=== PATIENT | male | born 1990 | race Two or more races ===

== ENCOUNTER 2018-11-18 10:07 | Emergency (ER) | payer MEDICAID ==
[~2018-11-18] VITALS: Ht 175.3 cm; Wt 63.5 kg
[2018-11-18] MEDS ORDERED: IV NORMAL SALINE 1000 ML BAG IV ONE (10:45)
[2018-11-18] MEDS ORDERED: METOCLOPRAMIDE HCL 10 MG/2 ML VIAL IV ONE (10:45)
[2018-11-18] MEDS ORDERED: KETOROLAC TROMETHAMINE 15 MG INJ IV ONE (10:45)
[2018-11-18 10:58] LABS: BASOPHILS % (AUTO) 0.3 % (0.0-2.0); EOSINOPHILS % (AUTO) 0.6 % (0.0-7.0); HEMOGLOBIN 15.8 g/dL (12.5-16.3); LYMPHOCYTES # (AUTO) 1.3 K/uL (20.0-40.0); LYMPHOCYTES % (AUTO) 20.1 % (20.5-51.5); MEAN CORPUSCULAR HEMOGLOBIN 30.1 uug (23.8-33.4); MEAN CORPUSCULAR HGB CONC 34 g/dL (32.5-36.3); MEAN CORPUSCULAR VOLUME 89.7 fL (73.0-96.2); MONOCYTES # (AUTO) 0.5 K/uL (2.0-10.0); MONOCYTES % (AUTO) 7.4 % (0.0-11.0); NEUTROPHILS # (AUTO) 4.6 K/uL (1.8-8.9); NEUTROPHILS % (AUTO) 71.6 % (38.5-71.5); PLATELET COUNT (AUTO) 142 K/uL (152-348); RED BLOOD CELL COUNT(AUTO) 5.24 MIL/uL (4.06-5.63); WHITE BLOOD COUNT (AUTO) 6.4 K/uL (3.6-10.2)
[2018-11-18] MEDS ORDERED: KETOROLAC TROMETHAMINE 15 MG INJ ONE (11:03)
[2018-11-18] MEDS ORDERED: METOCLOPRAMIDE HCL 10 MG/2 ML VIAL ONE (11:04)
[2018-11-18 11:05] LABS: CARBON DIOXIDE 23 mmol/L (21-32); CHLORIDE 101 mmol/L (98-107); CREATININE 0.7 mg/dL (0.6-1.3); GLUCOSE 73 mg/dL (74-106); POTASSIUM 4.7 mmol/L (3.5-5.1); UREA NITROGEN, BLOOD 14 mg/dL (7-18)
[2018-11-18 11:12] LABS: ALANINE AMINOTRANSFERASE 32 U/L (16-63); ALKALINE PHOSPHATASE 90 U/L (50-136); ASPARTATE AMINOTRANSFERASE 52 U/L (15-37); BILIRUBIN,DIRECT 0.3 mg/dL (0.0-0.2); BILIRUBIN,TOTAL 0.8 mg/dL (0.2-1.0); LIPASE 206 U/L (73-393); TOTAL PROTEIN, SERUM 8.1 g/dL (6.4-8.2)
--- NOTE | 2018-11-18 12:00 | NUR ---
Pt states " I feel much better ". NAD noted at this time, disposition pending.
--- NOTE | 2018-11-18 13:00 | NUR ---
HOSPITAL TRAY PROVIDED FOR PT. PT FINISHED WITH GOOD APETITE
--- NOTE | 2018-11-18 13:32 | NUR ---
Patient discharged to home in stable conditon. Written and verbal after care instructions given. Patient verbalizes understanding of instructions.PT WALKS IN STEADY GAIT. PT SAYS FEELS BETTER, DENEIS N/V OR DIZZINESS.
[2018-11-18 13:33] VITALS: BP 101/71
== END 2018-11-18 13:35 | disposition home or self-care (01) ==
LOC: ER 10:07
DX: F10.239 Alcohol dependence with withdrawal, unspecified (principal); Y90.0 Blood alcohol level of less than 20 mg/100 ml
CPT/HCPCS: 36415; 80048; 80076; 83690; 84484; 85025; 85730; 96374; 96375; 99283; G0480; J1885; J2765; 70030-TC; A4663; J7030

== ENCOUNTER 2018-12-21 04:26 | Emergency (ER) | payer MEDICAID ==
[~2018-12-21] VITALS: Ht 175.3 cm; Wt 65.8 kg
[2018-12-21] MEDS ORDERED: IV D5/ 0.9% NACL 1,000 ML IV ONE (04:43)
[2018-12-21] MEDS ORDERED: ONDANSETRON IV *ER 4 MG/2 ML VIAL IV ONE (04:45)
[2018-12-21] MEDS ORDERED: LORAZEPAM 2 MG/1 ML VIAL IV ONE (04:45)
[2018-12-21] MEDS ORDERED: LORAZEPAM 2 MG/1 ML VIAL ONE (04:58)
[2018-12-21] MEDS ORDERED: ONDANSETRON 4 MG/2 ML VIAL ONE (04:58)
[2018-12-21 05:14] LABS: BASOPHILS % (AUTO) 0.7 % (0.0-2.0); EOSINOPHILS # (AUTO) 0.3 K/uL (0.0-0.7); EOSINOPHILS % (AUTO) 5.3 % (0.0-7.0); HEMOGLOBIN 15.7 g/dL (12.5-16.3); LYMPHOCYTES % (AUTO) 37.1 % (20.5-51.5); MEAN CORPUSCULAR HEMOGLOBIN 31.9 uug (23.8-33.4); MEAN CORPUSCULAR HGB CONC 35 g/dL (32.5-36.3); MEAN CORPUSCULAR VOLUME 91.6 fL (73.0-96.2); MONOCYTES # (AUTO) 0.7 K/uL (2.0-10.0); MONOCYTES % (AUTO) 12.2 % (0.0-11.0); NEUTROPHILS # (AUTO) 2.4 K/uL (1.8-8.9); NEUTROPHILS % (AUTO) 44.7 % (38.5-71.5); PLATELET COUNT (AUTO) 140 K/uL (152-348); RED BLOOD CELL COUNT(AUTO) 4.92 MIL/uL (4.06-5.63); WHITE BLOOD COUNT (AUTO) 5.4 K/uL (3.6-10.2)
[2018-12-21 05:20] LABS: CREATININE 1.1 mg/dL (0.6-1.3); POTASSIUM 3.8 mmol/L (3.5-5.1)
[2018-12-21 05:26] LABS: BILIRUBIN,DIRECT 0.2 mg/dL (0.0-0.2); BILIRUBIN,TOTAL 0.4 mg/dL (0.2-1.0); TOTAL PROTEIN, SERUM 7.4 g/dL (6.4-8.2)
--- NOTE | 2018-12-21 05:33 | NUR ---
Urine specimen collected and sent to lab,
[2018-12-21 05:58] LABS: *AMPHETAMINE, URINE NEGATIVE (NEGATIVE); *BARBITURATE, URINE NEGATIVE (NEGATIVE); *CANNABINOID, URINE POSITIVE (NEGATIVE); *COCCAINE, URINE NEGATIVE (NEGATIVE); *OPIATE, URINE NEGATIVE (NEGATIVE); *PHENCYCLIDINE SCREEN,URINE NEGATIVE (NEGATIVE)
[2018-12-21] MEDS ORDERED: LISINOPRIL 10 MG TABLET PO ONE (06:00)
[2018-12-21] MEDS ORDERED: LISINOPRIL 10 MG TABLET ONE (06:03)
[2018-12-21 06:10] VITALS: BP 145/100
--- NOTE | 2018-12-21 06:11 | NUR ---
Patient discharged to home in stable conditon. Written and verbal after care instructions given. Patient verbalizes understanding of instructions. Pt. d/c w/ prescription per MD order, d/c papers signed, all belongings w/ pt., ID band/IV removed, ambulated off unit w/ steady gait, NAD
== END 2018-12-21 06:14 | disposition home or self-care (01) ==
LOC: ER 04:28
DX: F10.239 Alcohol dependence with withdrawal, unspecified (principal); I10 Essential (primary) hypertension; Y90.4 Blood alcohol level of 80-99 mg/100 ml
CPT/HCPCS: 36415; 80048; 80076; 80307; 83735; 85025; 93005; 96374; 96375; 99284; G0480; J2060; J2405; A4663; J7042

== ENCOUNTER 2024-07-12 15:24 | Emergency (ER) | payer MEDICAID, OTHER ==
[~2024-07-12] VITALS: Ht 175.3 cm; Wt 72.6 kg
[2024-07-12] MEDS ORDERED: ONDANSETRON ODT 4 MG TAB.RAPDIS ONE (16:00)
[2024-07-12] MEDS ORDERED: IBUPROFEN 800 MG TABLET ONE (16:00)
[2024-07-12] MEDS: IBUPROFEN 800 MG TABLET PO ONE (16:07)
[2024-07-12] MEDS: IV NORMAL SALINE 500 ML BAG IV ONE (16:07)
[2024-07-12] MEDS: ONDANSETRON ODT 4 MG TAB.RAPDIS SL ONE (16:07)
[2024-07-12 16:57] VITALS: BP 131/86; O2SAT 98
== END 2024-07-12 16:58 | disposition home or self-care (01) ==
LOC: ER 15:24
DX: F10.129 Alcohol abuse with intoxication, unspecified (principal); Y90.9 Presence of alcohol in blood, level not specified
CPT/HCPCS: A4606; A4663; J7040; Q0162